=== PATIENT | male | born 1940 | race Caucasian/White ===

== ENCOUNTER 2017-09-26 08:41 | Emergency (ER) | payer MEDICARE ==
[~2017-09-26] VITALS: Ht 180.3 cm; Wt 90.7 kg
[~2017-09-26 08:41] MED LIST: ALLOPURINOL100 MG PO; VIAGRA100 MG PO
[2017-09-26] MEDS ORDERED: [UNRECOGNIZED DRUG - OTHER] PO (08:57)
[2017-09-26] MEDS ORDERED: VITAMIN D400 UNIT PO (08:58)
--- NOTE | 2017-09-27 16:10 | EKG ---
[facility] [address] [facility] [address] [facility] [place] [address] Signed Sinus rhythm with premature atrial complexes Otherwise normal ECG No previous ECGs available Confirmed by ROSANNA ESTRADA MD ([id number]) on 09/27/2017 4:10:14 PM Electronically Signed By: ORSANNA ESTRADA MD 09/27/17 1610 PATIENT NAME: DAYLIN ISLAS TREE Electrocardiogram DATE OF : 44 PHYSICIAN: ROSANNA ESTRADA MD REPORT #: [id number] REPORT IS CONFIDENTIAL AND NOT TO BE RELEASED WITHOUT AUTHORIZATION
== END 2017-09-26 11:03 | disposition home or self-care (01) ==
LOC: ED 08:41
DX: S01.111A Laceration without foreign body of right eyelid and periocular area, initial encounter (principal); S01.411A Laceration without foreign body of right cheek and temporomandibular area, initial encounter; S80.211A Abrasion, right knee, initial encounter; S40.211A Abrasion of right shoulder, initial encounter; W01.198A Fall on same level from slipping, tripping and stumbling with subsequent striking against other object, initial encounter; Z79.899 Other long term (current) drug therapy
CPT/HCPCS: 80053; 81001; 84484; 85025; 93005; 93010; 96360; 99283; J7040

== ENCOUNTER 2022-08-06 18:12 | Observation (INO) | payer MEDICARE ==
[~2022-08-06] VITALS: Ht 185.4 cm; Wt 89.0 kg
[~2022-08-06 18:12] MED LIST changes: +VITAMIN D400 UNIT PO; +[UNRECOGNIZED DRUG - OTHER] PO
[2022-08-08 18:24] VITALS: BP 138/77
--- NOTE | 2022-08-08 18:40 | NUR ---
REPORT HANDOFF FROM SANDRINE PETERS, PATIENT TRANSFERED IN [facility] BED. APPEARS CALM, RATES PAIN 2/10 ON PAIN SCALE, LOCALIZED TO NECK. FULL BODY ASSESSMENT DONE. PATIENT DOES NOT HAVE ANY VALUABLES WITH HIM OTHER THAN THE CLOTHES HE IS WEARING. CABRERA DRAINING YELLOW URINE. PROVIDED ICE WATER. NO OTHER NEEDS AT THIS TIME. CALL LIGHT WITHIN REACH.
--- NOTE | 2022-08-08 19:40 | NUR ---
RECEIVED REPORT FROM DAY SHIFT RN. PATIENT IS RESTING IN BED. PATIENT DENIES ANY NEEDS. CALL LIGHT IN REACH.
[2022-08-08 21:05] VITALS: BP 147/78
--- NOTE | 2022-08-08 21:37 | NUR ---
PATIENTS VITALS TAKEN AND RECORDED. PATIENTS CABRERA EMPTIED AND CABRERA CARE COMPLETED. INTAKE AND OUTPUT RECORDED. PATIENT REPOSITIONED IN BED. PATIENTS IV FLUSHED AND SL PER ORDER. HEEL PROTECTORS PLACED ON PATIENT. PATIENT IS ON ARJO BED. PATIENT IS ON RA. PATIENT PROVIDED WITH SNACK. PATIENT RATES PAIN AT A 4/10 IN HIS NECK, PRN MEDS GIVEN PER ORDER. PATIENT DENIES ANY FURTHER NEEDS. CALL LIGHT IN REACH.
--- NOTE | 2022-08-08 22:26 | NUR ---
PATIENT IS RESTING IN BED. PATIENT DONE WITH SNACK. PATIENTS PILLOW REPOSITIONED. PATIENT RATES PAIN AT A 2/10 AND DENIES THE NEED FRO INTERVENTION AT THIS TIME. PATIENT DENIES ANY FURTHER NEEDS. CALL LIGHT IN REACH.
--- NOTE | 2022-08-09 00:28 | NUR ---
PATIENT IS RESITNG IN BED WATCHING TV. PATIENT PROVIDED WARM BLANKET. PATIENT DENIES ANY PAIN. PATIENT DENIES ANY NEEDS. CALL LIGHT IN REACH.
[2022-08-09 02:40] VITALS: BP 127/63
--- NOTE | 2022-08-09 02:47 | NUR ---
PATIENTS VITALS TAKEN AND RECORDED. PATIENT REPOSITIONED IN BED. PATIENT REPORTS MILD PAIN, PRN TYLENOL GIVEN PER ORDER. PATIENT PROVIDED WITH WARM BLANKET. PATIENT DENIES ANY FURTHER NEEDS. CALL LIGHT IN REACH.
--- NOTE | 2022-08-09 04:02 | NUR ---
PATIENT IS RESTING IN BED WITH EYES CLSOED, RR 16. CALL LIGHT IN REACH.
[2022-08-09 05:19] VITALS: BP 148/64
--- NOTE | 2022-08-09 05:22 | NUR ---
LAB IN ROOM. PATIENTS VITALS TAKEN AND RECORDED. CABRERA EMPTIED. WARM BLANKET AND FRESH ICE WATER PROVIDED. PATIENT RATES PAIN AT A 2/10 AND DENIES THE NEED FOR PAIN MEDICATION AT THIS TIME. PATIENT DENIES ANY FURTHER NEEDS. CALL LIGHT IN REACH.
--- NOTE | 2022-08-09 05:55 | NUR ---
PATIENT IS RESTING IN BED WITH EYES CLOSED, RR 16. CALL LIGHT IN REACH.
--- NOTE | 2022-08-09 07:28 | NUR ---
REPORT FROM [employer] EDUCATOR RN
--- NOTE | 2022-08-09 08:02 | NUR ---
MORNING ASSESSMENT IS COMPLETE, PATIENT DENIES PAIN, PLAN TO GIVEN PRN TYLENOL. DAUGHTER IS IN ROOM AT THIS TIME. AWAITING BREAKFAST. NO OTHER NEEDS NOTED. CABRERA CATHETER IS DRAINING CLEAR YELLOW URINE.
--- NOTE | 2022-08-09 08:13 | NUR ---
MORNING ASSESSMENT IS COMPLETE. PATIENT GIVEN TWO TYLENOL FOR MILD DISCOMFORT. DAUGHTER IS IN ROOM. SUMMER FROM [facility] IS HERE.
[2022-08-09] MEDS ORDERED: ATORVASTATIN CA80 MG PO (08:28)
[2022-08-09] MEDS ORDERED: DONEPEZIL HCL5 MG PO (08:28)
[2022-08-09] MEDS ORDERED: XTANDI40 MG PO (08:29)
--- NOTE | 2022-08-09 09:18 | NUR ---
PHYSICAL THERAPY IN TO WORK WITH PATIENT.
--- NOTE | 2022-08-09 09:31 | NUR ---
WARM BLANKETS PROVIDED, LIGHTS DIMMED. VISITOR IS IN ROOM WITH PATIENT.
[2022-08-09 10:07] VITALS: BP 117/64
--- NOTE | 2022-08-09 10:30 | NUR ---
Spoke with pt and his daughter. Per daughter, Tanja from [facility] was here this am to visit pt. Daughter thinks pt has been accepted, but is unclear of time or date. Texted then called Summer and asked for the plan. Pt will have a bed tomorrow around 9am or 10am. She would like the emily gutierrez, PT/OT, wc, and ambulance transport. She would like the wc for future use as pt is a heavy 2 person assist. They plan to silvino pt for now. Called and updated Dr. Pillai and wc RX was completed. Called daughter and updated and she would like [facility] for DME. I spoke with PT and asked if he can ride in a wc and they did not think this would be possible at this time. Will plan for EMS transport. I updated the daughter and she is aware medicare may not cover the cost of EMS.
--- NOTE | 2022-08-09 10:39 | NUR ---
PATIENT IS RESTING IN BED, DENIES NEEDS.
--- NOTE | 2022-08-09 11:28 | NUR ---
PATIENT IS RESTING IN BED, DENIES NEEDS, AND IS PLEASANTLY CONFUSED.
--- NOTE | 2022-08-09 12:17 | NUR ---
CONNECTED WITH PTS' DAUGHTER ANDREA. PT HAS BEEN ACCEPTED TO [facility], HE CAME TO THE DECISION HIMSELF THAT HE CANNOT CARE FOR HIMSELF AND DID NOT WANT TO STRESS THE FAMILY ANYMORE. GAVE ENCOURAGEMENT AND SUPPORT TO ANDREA. WILL FOLLOW
--- NOTE | 2022-08-09 12:49 | NUR ---
MED REC COMPLETE
--- NOTE | 2022-08-09 12:52 | NUR ---
PATIENT IS RESTING IN BED, COMPLAINED OF NECK PAIN. WARM PACK PLACED. PATIENT DENIES OTHER NEEDS AT THIS TIME.
[2022-08-09 13:31] VITALS: BP 136/68
--- NOTE | 2022-08-09 14:07 | NUR ---
PATIENT GIVEN TWO TYLENOL FOR 5/10 NECK PAIN, REFUSES TO BE REPOSITIONED. TWO WARM BLANKETS PROVIDED. WARM PACK TO NECK.
--- NOTE | 2022-08-09 15:05 | NUR ---
PATIENT GIVEN 0.5MG OF IV DILAUDID FOR 5/10 PAIN AND BEFORE REPOSITIONING PATIENT.
[2022-08-09 18:31] VITALS: BP 149/76
--- NOTE | 2022-08-09 18:34 | NUR ---
PATIENT IS SLEEPING WITH REGULAR RESPIRATIONS.
--- NOTE | 2022-08-09 19:32 | NUR ---
RECEIVED REPORT FROM DAY SHIFT RN. PATIENT IS RESTING IN BED. PATIENT DENIES ANY NEEDS. CALL LIGHT IN REACH.
[2022-08-09 20:51] VITALS: BP 143/84
--- NOTE | 2022-08-09 21:17 | NUR ---
PATIENTS VITALS TAKEN AND RECORDED. PATIENT INCONT STOOL. NITISH CARE COMPLETED AND ATTEND PLACED ON PATIENT. PATIENTS BEDDING CHANGED. PATIENT REPOSITIONE DIN BED. CABRERA EMPTIED AND CABRERA CARE COMPLETED. INTAKE AND OUTPUT RECORDED. PATIENT PAINFUL WITH MOVEMENT. PATIENT IS REQUESTING TYLENOL WHEN NEXT DUE. EDUCATED PATIENT THAT IS AT 2200. PATIENT AGREES TO TYLENOL AT 2200. PATIENT PROVIDED WITH ARM BLANKETS AND FRESH ICE WATER. HEEL PROTECTORS IN PLACE. PATIENT DENIES ANY FURTHER NEEDS. CALL LIGHT IN REACH. [facility] BED IN PLACE.
--- NOTE | 2022-08-09 22:44 | NUR ---
PATIENT IS RESTINB IN BED. PATIENT REPORTS 1/10 PAIN, TYLENOL GIVEN PER ORDER. PATIENT DENIES ANY FURTHER NEEDS. CALL LIGHT IN REACH. CABRERA PRESENT AND DRAINING.
--- NOTE | 2022-08-10 00:33 | NUR ---
PATIENT IS RESTING IN BED WITH EYES COSED, RR 15. CALL LIGHT IN REACH.
--- NOTE | 2022-08-10 02:37 | NUR ---
PATIENT IS RESTING IN BED WITH EYES CLOSED, RR 16. CALL LIGHT IN REACH.
--- NOTE | 2022-08-10 04:26 | NUR ---
PATIENT IS RESTING IN BED WITH EYES CLOSED, RR 14. CALL LIGHT IN REACH.
[2022-08-10 06:26] VITALS: BP 174/69
--- NOTE | 2022-08-10 06:36 | NUR ---
PATIENTS VITALS TAKEN AND RECORDED. CABRERA EMPTIED. INTAKE AND OUTPUT RECORDED. PATIENT REPOSITIONED. PATIENT RATES PAIN AT A 3/10 IN HIS NECK, PRN MEDS GIVEN PER ORDER. PATIENT DENIES ANY FURTHER NEEDS. CALL LIGHT IN REACH. WARM BLANKET PROVIDED.
--- NOTE | 2022-08-10 07:22 | NUR ---
RECEIVED REPORT FROM [facility] NURSE. PT IS ALERT, RESPIRATIONS EVEN AND REGULAR. CALL LIGHT WITHIN REACH.
--- NOTE | 2022-08-10 07:41 | NUR ---
PT ASSESSMENT COMPLETED. PT IS ALERT, CAN BE FORGETFUL. RESPIRATIONS EVEN AND REGULAR. CALL LIGHT WITHIN REACH.
--- NOTE | 2022-08-10 07:57 | NUR ---
PT APPEARS EAGER TO GET HIS STRENGTH BACK AT [facility]. PT WAS ASKING IF THEY OFFER PT AND OT AT THE ASSISTED FACILITY. PT ALSO REQUESTED IF HE COULD HAVE AN ORDER OF [employer] FOR BREAKFAST. CALLED THE [facility]ITCH[facility] FOR THE PT AND THEY SAID THEY WOULD TRY. CALL LIGHT WITHIN REACH. NO OTHER NEEDS AT THIS TIME.
[2022-08-10] MEDS ORDERED: OXYCODON-ACETA1 EAC2 PO (08:12)
[2022-08-10 09:24] VITALS: BP 164/75
--- NOTE | 2022-08-10 09:36 | NUR ---
PT CABRERA CATHETER HAS BEEN REMOVED. IV REMOVED, AND VS COMPLETED.
--- NOTE | 2022-08-10 09:56 | NUR ---
pt req warm blanket. warm blanket provided. no further needs. call light within reach
[2022-08-10 10:10] VITALS: BP 144/70
--- NOTE | 2022-08-10 10:20 | NUR ---
REPORT CALLED TO [facility] FOR PT DC. REPORT GIVEN TO DANK.
--- NOTE | 2022-08-10 13:26 | NUR ---
CONNECTED WITH PT EMT TRANSPORT IS HERE [place] TO TANSFER PT TO [facility]. GVE ENCOURAGEMENT TO PT, HE ACKNOWLEDGED. ALSO VISITED WITH DAUGHTER ANDREA AND HER . GAVE SUPPORT, SHE BELIEVES THIS IS THE RIGHT DECISION FOR PT AND THE FAMILY. GAVE BLESSING
== END 2022-08-10 10:50 ==
LOC: ED 18:12 → MS 08-08 17:03
PROVIDERS: ADMIT Family Medicine; ATTEND Family Medicine
DX: M54.50 Low back pain, unspecified (principal); R53.1 Weakness; L89.90 Pressure ulcer of unspecified site, unspecified stage; Z85.46 Personal history of malignant neoplasm of prostate
CPT/HCPCS: 36415; 51702; 70450; 72131; 72146; 72158; 80053; 81001; 82553; 83735; 84100; 85025; 97161; 97163; 97165; 99285-25; A9270; A9579; J1100; J1170; J7030